=== PATIENT | female | born 1995 | race Caucasian/White ===

== ENCOUNTER → 2020-08-03 07:44 | Outpatient (CLI) | payer OTHER, SELFPAY ==
--- NOTE | ~2020-08-03 | US_ITS ---
EXAMINATION: US abdomen complete EXAM DATE: 08/03/2020 08:13 INDICATION: Upper abdominal pain. Heartburn. TECHNIQUE: Multiple grayscale and Doppler images of the complete abdomen were obtained (by a technolo gist who performed the scan) and subsequently reviewed. There is no prior study for comparison. FINDINGS: The abdominal aorta is normal in caliber. Visualized portion IVC is patent. The pancreatic head a nd body are normal in appearance. The pancreatic tail is not visualized. The liver has normal echogenicity and contour. There are no focal liver lesions identified. There is no evidence of intrahepatic biliary duct dilation. Portal venous flow was seen in the hepatopedal , normal direction and has normal Doppler waveform. Common bile duct measures 3 mm, which is normal. The gallbladder wall is normal in thickness, with ex pected amount of distention. No sonographic evidence of pericholecystic fluid. There is no cholelit hiases. Technologist performing exam reports patient did not demonstrate sonographic Walker's sign. Please note that this sign is less reliable in patients who have received pain medication. Right kidney: There is normal contour and echogenicity. It measures 10.0 x 3.7 x 5.4 centimeters. There are no focal renal lesions identified. There is no hydronephrosis. Left kidney: There is normal contour and echogenicity. It measures 10.6 x 4.6 x 5.2 centimeters. T here are no focal renal lesions identified. There is no hydronephrosis. The spleen measures 11.4 centimeters and is morphologically normal. IMPRESSION: 1. Unremarkable complete abdominal ultrasound exam. Reviewed, dictated and finalized at location B.
== END ==
PROVIDERS: PCP Nurse Practitioner Family; Visit Provider Nurse Practitioner Family
DX: R10.9 Unspecified abdominal pain (principal)
CPT/HCPCS: 76700

== ENCOUNTER 2020-08-19 07:16 | Outpatient (CLI) | payer OTHER, SELFPAY ==
--- NOTE | ~2020-08-19 | NM_ITS ---
EXAMINATION: NM hepatobiliary w pharm DATE: 08/19/2020 09:45 INDICATION: Epigastric abdominal pain. COMPARISON: Ultrasound 08/03/2020 TECHNIQUE: 5 mCi Tc-99m mebrofenin (Choletec) was administered intravenously. Scintigraphic images o f the abdomen were obtained for one hour. Then, 1.5 mcg sincalide (Kinevac) IV was administered, and imaging was continued for 30 minutes. FINDINGS: There is normal clearance of radiotracer from the blood pool. There is homogeneous tracer u ptake by the liver. Activity progresses to the bowel and gallbladder. Gallbladder ejection fraction (GBEF) was 82%. Note that most patients with gallbladder dysfunction have GBEF < 35%, which overlaps with the broad normal range of 10-90%. IMPRESSION: 1. Normal hepatobiliary scintigraphy. Reviewed, dictated and finalized at location A.
== END 2020-08-19 07:17 | disposition home or self-care (01) ==
LOC: ANHIMG 07:19
PROVIDERS: PCP Nurse Practitioner Family; Visit Provider Family Medicine
DX: R10.13 Epigastric pain (principal)
CPT/HCPCS: 78227; A9537; J2805

== ENCOUNTER 2020-09-08 00:24 | Outpatient (CLI) | payer OTHER, SELFPAY ==
[2020-09-08 19:48] LABS: SARS-CoV-2 RNA PCR Negative
== END 2020-09-08 00:25 | disposition home or self-care (01) ==
LOC: ANHCOVIDDT 00:24
PROVIDERS: PCP Nurse Practitioner Family; Visit Provider Internal Medicine Gastroenterology
DX: Z01.818 Encounter for other preprocedural examination (principal); Z20.828 Contact with and (suspected) exposure to other viral communicable diseases
CPT/HCPCS: 87635; C9803; U0003

== ENCOUNTER 2020-09-11 00:43 | Day surgery (SDC) | payer OTHER, SELFPAY ==
[2020-09-07 14:42] VITALS: BMI 24.3
--- NOTE | 2020-09-11 09:51 | WPDANESEPPF ---
Anes - Initial Pre Proc Eval Procedure: Operation Date: 09/11/20 12:45 Proposed Procedures p Esophagogastroduodenoscopy - Steven Peck MD Date/Time: 09/11/20 09:51 Surgeon: Steven Peck MD Pre Op Diagnosis: Abdominal Pain Patient Data Age: 24 Gender: F Height: 1.7 m Weight: 70.4 kg Allergies Allergy/AdvReac Type Severity Reaction Status Date / Time bupropion [From Wellbutrin] Allergy Mild Rash Verified 09/11/20 11:51 cefprozil Allergy Mild Rash Verified 09/11/20 11:51 Home Medications Medication Instructions Recorded Confirmed Type fluoxetine 20 mg capsule 20 mg PO DAILY 07/30/20 09/07/20 History quetiapine 50 mg tablet 50 mg PO DAILY tablet 07/30/20 09/07/20 History ondansetron 4 mg disintegrating 4 mg PO Q8H PRN #20 tablet 08/27/20 09/07/20 Rx tablet levonorgestrel-ethinyl estrad 1 tablet PO DAILY 09/07/20 09/07/20 History omeprazole 20 mg capsule,delayed 20 mg PO DAILY #30 cap 09/10/20 Rx release Patient hx anesthesia problems: none Family hx anesthesia problems: none PMFSH Past Medical History Medical History (Updated 09/11/20 @ 09:51 by Cy Inman MD) Anxiety Chronic GERD Depression Family History Family History Father Hypertension Grandparent Diabetes mellitus Social History Social History Smoking status: Never smoker Alcohol intake: current Drinks per week: 3 Substance use: current Substance use type: marijuana Last use: 08/31/2020 Living arrangements: with family Spiritual care concerns: No Anes - Eval Final PreProcedure Day of Procedure 09/11/20 09:51 Patient weight: normal Heart: regular rate and rhythm Lungs: clear to auscultation and normal air movement Airway: Mallampati scale class II Neurological: alert and oriented Last oral intake: >/= 8 hours ASA classification: II Emergent: no Anesthetic plan: proceed Anesthesia type and monitoring: general GIVS Informed Consent: The patient's anesthetic plan and its attendant risks and benefits were discussed with the patient/family/POA. Questions were solicited and answers provided to the satisfaction of the patient/family/POA.
[2020-09-11 11:52] VITALS: BP 133/80; PULSE 84; RESP 16; TEMP 36.8; O2SAT 99
[2020-09-11] MEDS: LACTATED RINGERS 1,000 ML 150 ML IV CONT (12:03)
--- NOTE | 2020-09-11 13:13 | WPDHPUPDATE1 ---
History and Physical Update Update Date/Time: 09/11/20 13:13 History and Physical has been reviewed, including an updated exam of the patient. There are NO changes in the patient's condition. Risks, benefits, and alternatives have been discussed and questions answered. Patient agrees to proceed with procedure.
[2020-09-11 14:19] LABS: Beta HCG Quantitative < 2.39 mIU/ML
[2020-09-11 15:12] VITALS: BP 97/61; PULSE 80; RESP 17; O2SAT 96
[2020-09-11 15:22] VITALS: BP 104/65; PULSE 78; RESP 17; O2SAT 100
[2020-09-11 15:32] VITALS: BP 114/76; PULSE 77; RESP 20; O2SAT 100
--- NOTE | 2020-09-11 16:16 | SUR.PHASEII ---
[employer]IVERS CAR DID NOT START MAINTENANCE NOTIFIED, STARTED HER CAR
== END 2020-09-11 16:16 | disposition home or self-care (01) ==
PROVIDERS: Anesthesiology; PCP Nurse Practitioner Family; Visit Provider Internal Medicine Gastroenterology
PROC: 0DJ08ZZ Inspection of Upper Intestinal Tract, Via Natural or Artificial Opening Endoscopic (ICD-10-PCS; CPT 43235; principal; 2020-09-11 12:45)
DX: R11.0 Nausea (principal); R10.13 Epigastric pain; K44.9 Diaphragmatic hernia without obstruction or gangrene; K29.50 Unspecified chronic gastritis without bleeding; K21.9 Gastro-esophageal reflux disease without esophagitis; F41.8 Other specified anxiety disorders; F12.90 Cannabis use, unspecified, uncomplicated
CPT/HCPCS: 43239; 36415; 84702; 88305; J2704; J7120

== ENCOUNTER 2022-05-25 16:44 | Outpatient (CLI) | payer OTHER, SELFPAY ==
--- NOTE | ~2022-05-25 | XR_ITS ---
XR lumbar spine 2-3V 05/25/2022 17:01 Indication: Low back pain Procedure: 4 views lumbar spine Comparison: No prior studies for comparison. Findings: Mild levoscoliosis. Vertebral body heights are maintained. No significant disc narrowing. N o fracture or traumatic malalignment. Impression: 1: Mild levoscoliosis. Reviewed, dictated and finalized at location A. Impression: 1: Mild levoscoliosis.
== END 2022-05-25 16:45 | disposition home or self-care (01) ==
PROVIDERS: PCP Family Medicine; Visit Provider Nurse Practitioner Family
DX: M54.50 Low back pain, unspecified (principal)
CPT/HCPCS: 72100